=== PATIENT | female | born 1950 | race Caucasian/White ===

== ENCOUNTER 2017-06-24 10:23 | Outpatient (CLI) | payer MEDICARE, BC ==
--- NOTE | 2017-06-24 14:13 | MMO ---
BILATERAL DIAGNOSTIC MAMMOGRAM: Date: 06/24/17 INDICATION: History of invasive ductal carcinoma of the right breast. COMPARISON: Prior diagnostic evaluation dated 04/17/16. FINDINGS: Interpretation of this exam was assisted with computer-aided detection. There is skin thickening involving the right breast consistent with therapy changes. There is coarse dorota of the breast architecture, likely related to therapy changes. There is postsurgical change inv olving the 12 o'clock position of the right mid breast. There are benign-appearing calcifications bi laterally. No new suspicious mass, cluster of microcalcifications or architectural distortion seen. IMPRESSION: BIRADS 2: Benign Finding(s) Recommend bilateral diagnostic mammogram in 1 year. POS: [facility]
== END 2017-06-24 10:24 | disposition home or self-care (01) ==
LOC: MAMMO 10:23
PROVIDERS: ATTEND Specialist
DX: C50.911 Malignant neoplasm of unspecified site of right female breast (principal)
CPT/HCPCS: 77066; G0204

== ENCOUNTER 2017-10-08 21:19 | Emergency (ER) | payer MEDICARE, BC ==
[2017-10-08] MEDS ORDERED: Adacel (T-DAP) 0.5 ML VIAL ONE (21:44)
--- NOTE | 2017-10-08 22:20 | RAD ---
LEFT HAND RADIOGRAPHS THREE VIEWS 10/08/17 PROVIDED CLINICAL HISTORY: Left hand pain. FINDINGS: There is no evidence for fracture or other acute osseous abnormality. If there is persistent clinical concern, conservative management and followup imaging are advised. IMPRESSION: As above. POS: [facility]
--- NOTE | 2017-10-08 22:21 | RAD ---
LEFT WRIST RADIOGRAPHS THREE VIEWS: 10/08/17 PROVIDED CLINICAL HISTORY: Left wrist pain. FINDINGS: There is no evidence for fracture or other acute osseous abnormality. If there is persistent clinical concern, conservative management and followup imaging are advised. IMPRESSION: As above. POS: [facility]
[2017-10-08] MEDS ORDERED: Bacitracin Zinc 1 Packet ONE (23:02)
== END 2017-10-08 23:14 | disposition home or self-care (01) ==
LOC: ERS 21:19
DX: S01.81XA Laceration without foreign body of other part of head, initial encounter (principal); S63.502A Unspecified sprain of left wrist, initial encounter; K21.9 Gastro-esophageal reflux disease without esophagitis; M94.0 Chondrocostal junction syndrome [Tietze]; W18.09XA Striking against other object with subsequent fall, initial encounter
CPT/HCPCS: 12013; 90715

== ENCOUNTER 2018-07-22 13:35 | Outpatient (CLI) | payer MEDICARE, BC | END 2018-07-22 13:36 | disposition home or self-care (01) | LOC: BICMAMMO 13:35 | PROVIDERS: ATTEND Specialist | DX: C50.911 Malignant neoplasm of unspecified site of right female breast (principal); Z98.890 Other specified postprocedural states | CPT/HCPCS: 77066; G0279 ==

== ENCOUNTER 2019-02-09 19:24 | Emergency (ER) | payer MEDICARE, BC ==
--- NOTE | 2019-02-09 20:52 | RAD ---
TWO VIEW CHEST: History: Cough. FINDINGS: Lungs appear well aerated. No evidence of focal infiltrate. Heart and mediastinum unremarkable. IMPRESSION: No acute process identified. POS: [facility]
== END 2019-02-09 20:15 | disposition home or self-care (01) ==
LOC: SCSER 19:24
DX: J06.9 Acute upper respiratory infection, unspecified (principal); M94.0 Chondrocostal junction syndrome [Tietze]; K21.9 Gastro-esophageal reflux disease without esophagitis; E78.00 Pure hypercholesterolemia, unspecified; Z79.899 Other long term (current) drug therapy
CPT/HCPCS: 71046

== ENCOUNTER 2019-02-12 13:47 | Outpatient (CLI) | payer MEDICARE, BC ==
--- NOTE | 2019-02-12 15:03 | MMO ---
Right Breast MAMMO Unilat Diag DDI RT+ELYSE. CLINICAL HISTORY: Patient is 68 years old and is seen for diagnostic exam. The patient has no family history of breast cancer. 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 The patient has a history of right Lumpectomy in June, - dcis and right Ultrasound Guided Core Biopsy in April, - malignant. VIEWS: The views performed were: right craniocaudal with tomosynthesis; right mediolateral oblique with tomosynthesis; and right mediolateral. FILMS COMPARED: The present examination has been compared to prior imaging studies performed at [facility] on 04/17/2016, 06/24/2017 and 07/22/2018. MAMMOGRAM FINDINGS: There are scattered fibroglandular densities. There is a stable area of architectural distortion with associated post-surgical scar seen in the right breast. IMPRESSION: STABLE AREA OF ARCHITECTURAL DISTORTION IN THE RIGHT BREAST IS PROBABLY BENIGN. FOLLOW-UP IN 6 MONTHS IS RECOMMENDED. THE RESULTS OF THIS EXAM WERE SENT TO THE PATIENT. ACR BI-RADS Category 3 - Probably benign finding - short interval follow-up suggested. [facility] will notify the patient of the need for additional imaging services. MAMMOGRAPHY NOTE: 1. A negative mammogram report should not delay a biopsy if a dominant of clinically suspicious mass is present. 2. Approximately 10% to 15% of breast cancers are not detected by mammography. 3. Adenosis and dense breasts may obscure an underlying neoplasm.
== END 2019-02-12 13:48 | disposition home or self-care (01) ==
LOC: BICMAMMO 13:47
PROVIDERS: ATTEND Specialist
DX: R92.8 Other abnormal and inconclusive findings on diagnostic imaging of breast (principal); L90.5 Scar conditions and fibrosis of skin; Z85.3 Personal history of malignant neoplasm of breast
CPT/HCPCS: 77065; G0279

== ENCOUNTER 2019-06-11 19:52 | Emergency (ER) | payer MEDICARE, BC ==
[2019-06-11 20:36] LABS: Bilirubin Negative (Negative); Blood, Urine Negative (Negative); Clarity Clear (Clear); Glucose, Urine (Dipstick) Normal (Negative); Leukocyte Negative Leu/uL (Negative); Nitrite Negative (Negative); Protein, Urine (Dipstick) Negative (Neg-Trace); Urobilinogen Normal mg/dL (Less than 2)
[2019-06-11] MEDS ORDERED: Ketorolac Tromethamine 30 MG/ML VIAL ONE (21:03)
[2019-06-11] MEDS ORDERED: Ondansetron PF 4 MG/2 ML Vial ONE (21:03)
[2019-06-11 21:13] LABS: #Basophils 0.1 thou/uL (0.0-0.2); #Eosinphils 0.1 thou/uL (0.0-0.7); #Lymphocytes 1.9 thou/uL (1.20-3.40); #Monocytes 0.4 thou/uL (0.11-0.59); #Neutrophils 5.7 thou/uL (1.40-6.50); %Basophils 0.8 % (0.0-1.0); %Eosinophils 0.9 % (0.0-10.0); %Lymphocytes 22.9 % (21.0-51.0); %Monocytes 5.4 % (0.0-10.0); %Neutrophils 69.9 % (42.0-75.0); Hemoglobin 14.3 g/dL (12.0-16.0); Mean Corpuscular HGB CONC 34.4 g/dL (32.0-36.0); Mean Corpuscular Hemoglobin 31.2 pg (27.0-31.0); Mean Corpuscular Volume 90.7 fL (78.0-98.0); Platelet Count 245 thou/uL (130-400); RBC Distribution Width 12.9 % (11.5-14.5); Red Blood Cell (RBC) Count 4.58 mill/uL (4.20-5.40); White Blood Cell (WBC) Count 8.2 thou/uL (4.8-10.8)
[2019-06-11 21:33] LABS: ALT (SGPT) 22 U/L (8-55); AST (SGOT) 21 U/L (5-34); Albumin 4.4 g/dL (3.4-4.8); Alkaline Phosphatase 66 U/L (40-110); Anion Gap 15 mmol/L (10-20); BUN (Urea Nitrogen) 9 mg/dL (9.8-20.1); Bilirubin, Total 0.9 mg/dL (0.2-1.2); Calc. Creatinine Clearance 0 mL/min (70-130); Calcium 9.9 mg/dL (7.8-10.44); Carbon Dioxide 24 mmol/L (23-31); Chloride 99 mmol/L (98-107); Estimated GFR-MDRD 86; Globulin 2.8 g/dL (2.4-3.5); Glucose 88 mg/dL (80-115); Lipase 15 U/L (8-78); Potassium 3.4 mmol/L (3.5-5.1); Protein, Total 7.2 g/dL (6.0-8.3); Sodium 135 mmol/L (136-145)
--- NOTE | 2019-06-11 21:52 | CT ---
CT Stone Protocol HISTORY: Right flank pain COMPARISON: None. FINDINGS: The lung bases show some reticular scar. A small hiatal hernia is noted. The liver, spleen, pancreas regions appear unremarkable given the limitations of a noncontrast study. Small gallstones are noted. Right and left adrenal glands and right and left kidneys are normal in size. A hypodensity involving the lower pole of the right kidney is somewhat oblong in shape measuring 3.9 cm, it has CT numbers most suggestive of a cyst. No renal calculi are demonstrated. No obstruction. There is no significant periaortic or mesenteric adenopathy. CT of pelvis performed without contrast enhancement: The appendix is normal. There is no evidence of adenopathy, mass or free fluid. Arthritic changes of the spine are present. IMPRESSION: Small gallstones.
== END 2019-06-11 22:40 | disposition home or self-care (01) ==
LOC: ERS 19:52
DX: R10.31 Right lower quadrant pain (principal); K21.9 Gastro-esophageal reflux disease without esophagitis; E78.00 Pure hypercholesterolemia, unspecified; Z79.899 Other long term (current) drug therapy; Z85.3 Personal history of malignant neoplasm of breast
CPT/HCPCS: 36415; 74176; 80053; 81003; 83690; 85025; 96374; 96375; J1885; J2405

== ENCOUNTER 2019-08-23 14:39 | Outpatient (CLI) | payer MEDICARE, BC ==
--- NOTE | 2019-08-23 15:25 | MMO ---
Bilateral MAMMO Bilat Diag DDI+ELYSE. CLINICAL HISTORY: Patient is 69 years old and is seen for diagnostic exam. The patient has no family history of breast cancer. 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 The patient has a history of right Lumpectomy in June, - dcis and right Ultrasound Guided Core Biopsy in April, - malignant. VIEWS: The views performed were: bilateral craniocaudal with tomosynthesis; bilateral mediolateral oblique with tomosynthesis; and bilateral mediolateral with tomosynthesis. FILMS COMPARED: The present examination has been compared to prior imaging studies performed at [facility] on 04/17/2016, 06/24/2017, 07/22/2018 and 02/12/2019. This study has been interpreted with the assistance of computer-aided detection. MAMMOGRAM FINDINGS: There are scattered fibroglandular densities. Finding 1: There is a stable post-surgical scar seen in the right breast. Finding 2: There are stable benign appearing calcifications seen in both breasts. There are no suspicious masses, suspicious calcifications, or new areas of architectural distortion. IMPRESSION: THERE IS NO MAMMOGRAPHIC EVIDENCE OF MALIGNANCY. A ROUTINE FOLLOW-UP MAMMOGRAM IN 1 YEAR IS RECOMMENDED. THE RESULTS OF THIS EXAM WERE SENT TO THE PATIENT. ACR BI-RADS Category 2 - Benign finding MAMMOGRAPHY NOTE: 1. A negative mammogram report should not delay a biopsy if a dominant of clinically suspicious mass is present. 2. Approximately 10% to 15% of breast cancers are not detected by mammography. 3. Adenosis and dense breasts may obscure an underlying neoplasm. Reported by: CAMILO POLANCO MD Electonically Signed: [id number]
== END 2019-08-23 14:40 | disposition home or self-care (01) ==
LOC: BICMAMMO 14:39
PROVIDERS: ATTEND Specialist
DX: Z08 Encounter for follow-up examination after completed treatment for malignant neoplasm (principal); Z85.3 Personal history of malignant neoplasm of breast
CPT/HCPCS: 77066; G0279

== ENCOUNTER 2019-09-17 19:55 | Emergency (ER) | payer MEDICARE, BC ==
[2019-09-17] MEDS ORDERED: Lidocaine 4% Cream 5 GM TUBE w/ Tegaderm ONE (20:42)
--- NOTE | 2019-09-17 21:11 | RAD ---
LEFT WRIST TWO VIEWS: 09/17/19 HISTORY: Fall with wrist pain. There are arthritic changes of the wrist with degenerative changes of the triscaphe and first carpome tacarpal joint spaces. There is no signs of fracture or dislocation. IMPRESSION: No evidence of fracture. POS: [facility]
--- NOTE | 2019-09-17 21:49 | CT ---
CT Brain WO Con HISTORY: Fall with head injury. COMPARISON: None. FINDINGS: The ventricular and cisternal system shows fairly age-appropriate change. There are no sign s of intracerebral hemorrhage or extra-axial fluid collections. The mastoid air cells and visualized sinuses appear clear IMPRESSION: No acute intracranial abnormalities.
--- NOTE | 2019-09-17 21:51 | CT ---
CT Cervical Spine WO Con HISTORY: Fall with neck pain. COMPARISON: None. FINDINGS: The vertebral bodies are normal in height. Mild degenerative disc narrowing is seen at C5-6 and C6-7. Degenerative changes of the facets are present. The facets are in normal alignment. Mild right-sided foraminal narrowing is seen at C3-4 moderate right-sided foraminal narrowing at C4-5 and bilateral foraminal narrowing worse on the left at C5-6. Left-sided foraminal narrowing at C6-7. There is no evidence of fracture. The lung apices are clear. IMPRESSION: No CT evidence of fracture the cervical spine.
[2019-09-17] MEDS ORDERED: Lidocaine 1% PF 5 ML VIAL ONE (22:07)
== END 2019-09-17 23:04 | disposition home or self-care (01) ==
LOC: ERS 19:55
DX: S01.111A Laceration without foreign body of right eyelid and periocular area, initial encounter (principal); M25.532 Pain in left wrist; E78.00 Pure hypercholesterolemia, unspecified; K21.9 Gastro-esophageal reflux disease without esophagitis; W01.0XXA Fall on same level from slipping, tripping and stumbling without subsequent striking against object, initial encounter; Y92.410 Unspecified street and highway as the place of occurrence of the external cause
CPT/HCPCS: 12011; 70450; 72125; J2001

== ENCOUNTER 2020-08-24 10:20 | Outpatient (CLI) | payer MEDICARE, BC ==
--- NOTE | 2020-08-24 11:15 | MMO ---
Bilateral MAMMO Bilat Diag DDI+ELYSE. CLINICAL HISTORY: Patient is 70 years old and is seen for diagnostic exam. The patient has no family history of breast cancer. 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 The patient has a history of right Lumpectomy in June, - dcis and right Ultrasound Guided Core Biopsy in April, - malignant. VIEWS: The views performed were: bilateral craniocaudal with tomosynthesis; bilateral mediolateral oblique with tomosynthesis; and bilateral mediolateral with tomosynthesis. FILMS COMPARED: The present examination has been compared to prior imaging studies performed at [facility] on 06/24/2017, 07/22/2018, 02/12/2019 and 08/23/2019. This study has been interpreted with the assistance of computer-aided detection. MAMMOGRAM FINDINGS: There are scattered fibroglandular densities. Finding 1: There are stable benign appearing calcifications seen in both breasts. Finding 2: There are stable benign appearing densities seen in both breasts. Finding 3: There is an area of architectural distortion with associated post-surgical scar seen in the right breast. There are no suspicious masses, suspicious calcifications, or new areas of architectural distortion. IMPRESSION: THERE IS NO MAMMOGRAPHIC EVIDENCE OF MALIGNANCY. A ROUTINE FOLLOW-UP MAMMOGRAM IN 1 YEAR IS RECOMMENDED. THE RESULTS OF THIS EXAM WERE SENT TO THE PATIENT. ACR BI-RADS Category 2 - Benign finding MAMMOGRAPHY NOTE: 1. A negative mammogram report should not delay a biopsy if a dominant of clinically suspicious mass is present. 2. Approximately 10% to 15% of breast cancers are not detected by mammography. 3. Adenosis and dense breasts may obscure an underlying neoplasm. Reported by: MARCIA BOYD MD Electonically Signed: [id number]
== END 2020-08-24 10:21 | disposition home or self-care (01) ==
LOC: BICMAMMO 10:20
PROVIDERS: ATTEND Specialist
DX: Z08 Encounter for follow-up examination after completed treatment for malignant neoplasm (principal); Z85.3 Personal history of malignant neoplasm of breast
CPT/HCPCS: 77066; G0279

== ENCOUNTER 2021-08-27 13:36 | Outpatient (CLI) | payer MEDICARE, BC | END 2021-08-27 13:37 | disposition home or self-care (01) | LOC: BICMAMMO 13:36 | PROVIDERS: ATTEND Specialist | DX: Z12.31 Encounter for screening mammogram for malignant neoplasm of breast (principal); Z98.890 Other specified postprocedural states; Z86.000 Personal history of in-situ neoplasm of breast | CPT/HCPCS: 77063; 77067 ==

== ENCOUNTER 2022-09-18 13:17 | Outpatient (CLI) | payer MEDICARE, BC | END 2022-09-18 13:18 | disposition home or self-care (01) | LOC: BICMAMMO 13:17 | PROVIDERS: ATTEND Family Medicine | DX: Z12.31 Encounter for screening mammogram for malignant neoplasm of breast (principal); D05.11 Intraductal carcinoma in situ of right breast; Z98.890 Other specified postprocedural states | CPT/HCPCS: 77063; 77067 ==

== ENCOUNTER 2023-11-07 13:35 | Outpatient (CLI) | payer MEDICARE | END 2023-11-07 13:36 | disposition home or self-care (01) | LOC: BICMAMMO 13:35 | PROVIDERS: ATTEND Family Medicine | DX: Z12.31 Encounter for screening mammogram for malignant neoplasm of breast (principal); Z80.3 Family history of malignant neoplasm of breast; Z85.3 Personal history of malignant neoplasm of breast; Z98.890 Other specified postprocedural states | CPT/HCPCS: 77063; 77067 ==

== ENCOUNTER 2025-09-12 15:24 | Outpatient (CLI) | payer MEDICARE | END 2025-09-12 15:25 | disposition home or self-care (01) | LOC: SCSULT 15:24 | PROVIDERS: ATTEND Family Medicine | DX: R60.0 Localized edema (principal) ==

== ENCOUNTER 2025-09-13 14:37 | Outpatient (CLI) | payer MEDICARE | END 2025-09-13 14:38 | disposition home or self-care (01) | LOC: CT 14:37 | PROVIDERS: ATTEND Family Medicine | DX: N64.59 Other signs and symptoms in breast (principal); R19.00 Intra-abdominal and pelvic swelling, mass and lump, unspecified site; R91.8 Other nonspecific abnormal finding of lung field; J98.4 Other disorders of lung; N32.9 Bladder disorder, unspecified; I77.810 Thoracic aortic ectasia; K80.20 Calculus of gallbladder without cholecystitis without obstruction | CPT/HCPCS: 71270; 74178 ==